=== PATIENT | female | born 1970 | race Caucasian/White ===

== ENCOUNTER → 2017-01-16 | Day surgery (SDC) | payer OTHER ==
[~2017-01-16] MED LIST: APREPITANT 40 MG CAP ONE; BUPIVACAINE/EPINEPHRINE 0.25% PF 10 ML VIAL ONE; ISOSULFAN BLUE 50 MG/5 ML VIAL SQ ONE; LACTATED RINGER'S 1000 ML INJ 1,000 ML ONE; LIDOCAINE 1%/EPINEPHrine 1:100,000 SOLN 50 ML VIAL ONE; MIDAZOLAM HCL 2 MG/2 ML VIAL ONE; MORPHINE SULFATE 4 MG/ML INJ ONE; ONDANSETRON HCL 4 MG/2 ML VIAL IV PUSH ONE; PROPOFOL 200 MG/20 ML AMP IV ONE; ceFAZolin 2 GM PREMIX 50 ML ONE
--- NOTE | 2017-01-16 15:24 | TN ---
cc: SHANNAN VILLAFUERTE M.D. DATE OF SURGERY: 01/16/2017 PREOPERATIVE DIAGNOSIS Right breast cancer. POSTOPERATIVE DIAGNOSIS Right breast cancer. PROCEDURE Injection blue dye right breast, right axillary sentinel lymph node biopsy, right breast needle-localized lumpectomy. SURGEON Dr. Shannan Villafuerte. BARREL FILLER Mara Negrete, BERNABE ANESTHESIA General. INDICATIONS A very pleasant 46-year-old woman recently diagnosed with invasive ductal carcinoma, well-differentiated right breast. Plans are made for right breast conservation therapy. INTRAOPERATIVE FINDINGS Successful removal of right axillary sentinel lymph node with 10-second count of 13,730, node was blue stained. The right breast lumpectomy specimen was sent with short suture superior anterior and long suture lateral posterior. Right breast lateral margins sent separately with a suture on new lateral margin. Estimated blood loss is minimal. This procedure was assisted by my nurse practitioner. The skill set of BERNABE was medically necessary to provide excellent visualization of the operative field and efficiency in the completion of the case. The lawn and garden technician was at the back table providing appropriate instrumentation while the nurse practitioner directly assisted me through the entirety of the case. DESCRIPTION OF PROCEDURE IN DETAIL The patient was identified as Gayle Kinsey, taken to the operating room and placed in the supine position. Sequential compression devices were placed on bilateral lower extremities. Following induction of adequate general anesthesia with a laryngeal mask a time-out procedure was performed. Following completion of time-out procedure to everyone's satisfaction within the room the breast skin was cleansed with alcohol swab and 5 ccs of isosulfan blue dye was injected in the peritumoral area, is located by the localization needle. The navigator probe was used to identify increased uptake within the right axilla. The breast was then prepped and draped in usual sterile fashion with Betadine. Proposed right axillary incision was made with a marking pen, infiltrated with local anesthetic. The incision was carried out with scalpel. Dissection continued posteriorly through subcutaneous fatty tissue until axillary tissue was identified. Blue stained lymphatic led down to the blue stained lymph node which had increased uptake, with the navigating probe was from surrounding tissues, cross-clamping lymphovascular structures with medium hemoclip in three locations. The 10-second count was obtained and the blue stained node was passed off the field as right axillary sentinel lymph node #1. Additional increased uptake was identified deep and dissection continued deep beneath the pectoralis musculature, but no palpable or visual or isolatable lymph node was identified. No additional blue stained lymph nodes or increased uptake in the lymph node was obtained and therefore no further material was removed. Hemostasis was assured after irrigation. Local anesthetic was placed within the wound and the wound was closed in layers using 3-0 Vicryl and 4-0 Monocryl. Attention was turned to hidden scar lumpectomy. Along the right periareolar edge proposed marking incision was made with a marking pen, infiltrated with local anesthetic. Local anesthetic was placed and a field block in the upper outer right breast. The incision was carried out with scalpel and hemostasis controlled with electrocautery. Using a lighted retractor dissection continued posteriorly and laterally until the localization needle was identified within the wound. It was divided at the level of the skin, brought into the wound and a generous portion of tissue around the localization needle tip was from surrounding breast tissue using electrocautery. The specimen was marked with a short stitch superior anterior and a long stitch lateral posterior and sent for imaging where Dr. Corado indicated the specimen looked perfect with the clip within the center of the specimen. Palpation of the wound demonstrated some granular tissue on the lateral aspect of the lumpectomy cavity, this was removed using electrocautery and sent to pathology as a lateral margin with a suture placed on the new lateral margin. The wound was irrigated copiously with saline. There was no evidence of bleeding. Local anesthetic was placed within the wound and deep 3-0 Vicryl suture was placed, 3-0 Vicryl was placed in deep dermis and subcutaneous tissue and 4-0 Monocryl in the subcuticular position of the skin. Dressings were applied with Mastisol, half-inch brown Steri-Strips, gauze and Tegaderm. Gauze and Tegaderm and Steri-Strips were placed over the axilla as well. The patient tolerated the procedures without apparent complication. Sponge, needle and instrument counts were correct at the end of the case. MD CAITLIN Castillo/SCARLETT /12:27 PM /3:05 PM
== END | disposition home or self-care (01) ==
LOC: ESDC 06:15
PROVIDERS: ATTEND Surgery Trauma Surgery
DX: C50.911 Malignant neoplasm of unspecified site of right female breast (principal)
CPT/HCPCS: 00400; 01610; 19125; 38525; 38792; 88307; J0690; J2250; J2270; J2405; J7120; J8501; Q9968; 88305